=== PATIENT | female | born 1955 | race Two or more races ===

== ENCOUNTER → 2024-04-17 | Outpatient (CLI) | payer MEDICARE, MEDICAID, SELFPAY ==
--- NOTE | 2024-04-17 15:00 | XR_ITS ---
Examination: Breast ultrasound, unilateral, left complete Date and time of exam: April 17, 2024 1503 hours INDICATIONS: Left breast pain and palpable lump in the retroareolar region noticed 7 months ago Technique: Real-time edmonds scale ultrasonographic imaging performed left breast including all 4 quadrants as well as nipple retroareolar and axillary region. Findings: 2:00 cyst 10 x 10 mm Retroareolar cyst 20 x 14 mm, dilated duct with internal echoes IMPRESSION: BI-RADS Category 3: Probably benign findings One additional 6 month left breast sonogram follow-up is needed to document appearance of dilated duct versus cyst in the retroareolar region left breast
== END | disposition home or self-care (01) ==
LOC: CDIM 14:41
PROVIDERS: PCP Internal Medicine Hematology; Referring Provider Physician Assistant; Visit Provider Physician Assistant
DX: R92.8 Other abnormal and inconclusive findings on diagnostic imaging of breast (principal)
CPT/HCPCS: 76641

== ENCOUNTER → 2024-09-10 | Outpatient (CLI) | payer MEDICARE, MEDICAID, SELFPAY ==
--- NOTE | 2024-09-10 12:00 | XR_ITS ---
Examination: Bone densitometry Date and time of exam:September 10, 2024 1209 hours INDICATIONS: Menopause age 45 vitamin D and calcium 15 days, diabetic Technique: Lumbar spine and hip total bone mineralization values of an calculated. Peak reference and age match control results have been displayed. Findings: Lumbar spine total bone mineralization is0.946 gm/cm2. This is 0.9 standard deviations below peak reference. This is 1.0 standard deviations above age-matched controls. Hip total bone mineralization is 1.026 gm/cm2 This is 0.5 standard deviations above peak reference. This is 1.7 standard deviations above age-matched controls Impression: There is normal mineralization based on lumbar spine measurements. There is osteopenia based on hip measurements
== END | disposition home or self-care (01) ==
PROVIDERS: PCP Physician Assistant; Referring Provider Physician Assistant; Visit Provider Physician Assistant
DX: M85.88 Other specified disorders of bone density and structure, other site (principal)
CPT/HCPCS: 77080

== ENCOUNTER → 2024-11-19 | Outpatient (CLI) | payer MEDICARE, MEDICAID, SELFPAY ==
--- NOTE | 2024-11-19 11:00 | XR_ITS ---
Examination: Breast ultrasound, unilateral, left complete Date and time of exam: November 19, 2024 at 1046 hours INDICATIONS: History palpable lump left breast retroareolar Technique: Real-time edmonds scale ultrasonographic imaging performed left breast including all 4 quadrants as well as nipple retroareolar and axillary region. Findings: 12:00 cyst 7 x 9 mm Retroareolar cyst 10 x 9 mm No solid nodules IMPRESSION: BI-RADS Category 2: Benign findings
--- NOTE | 2024-11-19 11:30 | XR_ITS ---
Examination: Diagnostic digital mammography, bilateral Computer aided detection 3-D breast Tomosynthesis, bilateral Date and time of exam: November 19, 2024 1105 hours Comparison December 26, 2021 INDICATIONS: Left breast cystic disease Technique: Nonmagnified MLO, CC views of the breasts to been obtained, reconstructed from 3-D Tomosynthesis images. R2 computer aided detection program utilized for evaluation of suspicious masses and/or abnormal calcifications. 3-D Tomosynthesis images obtained. Findings: Scattered areas of fibroglandular density. Benign calcifications. Stable nodule outer left breast No interval suspicious masses Impression: BI-RADS Category 2: Benign findings Recommend yearly follow-up mammography.
== END | disposition home or self-care (01) ==
LOC: CDIM 10:27
PROVIDERS: PCP Physician Assistant; Referring Provider Physician Assistant; Visit Provider Physician Assistant
DX: Z12.31 Encounter for screening mammogram for malignant neoplasm of breast (principal); R92.323 Mammographic fibroglandular density, bilateral breasts; R92.1 Mammographic calcification found on diagnostic imaging of breast; N60.12 Diffuse cystic mastopathy of left breast; N63.20 Unspecified lump in the left breast, unspecified quadrant
CPT/HCPCS: 76641; 77062; 77066; G0279